=== PATIENT | male | born 1940 | race Asian ===

== ENCOUNTER 2017-04-30 07:30 | Inpatient (IN) | payer OTHER ==
[~2017-04-30] VITALS: Ht 167.6 cm; Wt 67.6 kg
--- NOTE | 2017-04-30 07:30 | NUR ---
PATIENT BIBA FOR C/O CHEST PAIN . PT STATES HE WAS WORKING OUT AT [employer] AND BEGAN HAVING CHEST PAIN. PER MEDIC BYSTANDERS NOTED PT CLUTCHING HIS CHEST AND CALLED 911. HX CORONARY BYPASS X2 IN 1996 AND 2007, PACEMAKER PLACEMENT 2012 . DENIES N/V/D; SKIN IS PINK/WARM/DRY; AAOX4; LUNGS CLEAR BL; HR EVEN AND REGULAR; PT DENIES ANY FEVER, SOB, OR COUGH AT THIS TIME; PATIENT STATES PAIN OF 7/10 AT THIS TIME; VSS; PATIENT POSITIONED FOR COMFORT; HOB ELEVATED; BEDRAILS UP X2; BED DOWN. ER MD MADE AWARE OF PT STATUS.
--- NOTE | 2017-04-30 07:30 | NUR ---
Patient was BIBA and taken to bed 03 via gurney per EMS.
[2017-04-30 07:33] VITALS: BP 107/73
--- NOTE | 2017-04-30 07:35 | NUR ---
[employer] #[id number] CONTACTED AT 1181, TRANSLATED FOR PT.
[2017-04-30] MEDS ORDERED: NITROGLYCERIN 2% 1 GM PKT TP ONE (07:40)
--- NOTE | 2017-04-30 07:43 | NUR ---
DAUGHTER AT BEDSIDE.
[2017-04-30 07:57] LABS: BASOPHILS # (AUTO) 0.4 K/uL (0.00-0.22); BASOPHILS % (AUTO) 4.7 % (0.0-2.0); EOSINOPHILS # (AUTO) 0.2 K/uL (0-0.4); EOSINOPHILS % (AUTO) 2.2 % (0.0-4.0); HEMATOCRIT 38.1 % (36-52); HEMOGLOBIN 12.4 g/dL (12.0-18.0); LYMPHOCYTES # (AUTO) 3.8 K/uL (2.0-11.5); LYMPHOCYTES % (AUTO) 46.3 % (20.5-51.1); MEAN CORPUSCULAR HEMOGLOBIN 29 pg (27-31); MEAN CORPUSCULAR HGB CONC 33 g/dL (33-37); MEAN CORPUSCULAR VOLUME 89 fL (80-94); MONOCYTES # (AUTO) 0.9 K/uL (0.8-1.0); MONOCYTES % (AUTO) 10.4 % (1.7-9.3); NEUTROPHILS # (AUTO) 3.1 K/uL (1.8-7.7); NEUTROPHILS % (AUTO) 36.4 % (42.2-75.2); PLATELET COUNT (AUTO) 174 K/uL (140-450); RED BLOOD CELL COUNT(AUTO) 4.29 MIL/uL (4.20-6.10); RED CELL DISTRIBUTION WIDTH 13.4 % (11.6-13.7); WHITE BLOOD COUNT (AUTO) 8.4 K/uL (4.8-10.8)
--- NOTE | 2017-04-30 08:12 | NUR ---
PT RESTING QUIETLY ON GURFLUSHING.
[2017-04-30 08:29] LABS: ALANINE AMINOTRANSFERASE 22 U/L (12-78); ALBUMIN 3.2 g/dL (3.4-5.0); ALKALINE PHOSPHATASE 36 U/L (46-116); ANION GAP 11.4 (8-16); ASPARTATE AMINOTRANSFERASE 19 U/L (15-37); CARBON DIOXIDE 29.3 mmol/L (21-32); CHLORIDE 105 mmol/L (98-107); CREATININE 1.1 mg/dL (0.6-1.3); GLUCOSE 152 mg/dL (74-106); INR 1.9 (0.8-1.2); PARTIAL THROMBOPLASTIN TIME 30.8 secs (22-35.6); POTASSIUM 3.7 mmol/L (3.5-5.1); PROTHROMBIN TIME 19.7 secs (10.8-13.4); SODIUM SERUM 142 mmol/L (136-145); TOTAL BILIRUBIN 0.4 mg/dL (0.0-1.0); TOTAL PROTEIN, SERUM 6.3 g/dL (6.4-8.2); UREA NITROGEN, BLOOD 16 mg/dL (7-18)
--- NOTE | 2017-04-30 08:36 | NUR ---
PT RESTING QUIETLY ON GURNEY. DAUGHTER AT BEDSIDE. PT DENIES ANY PAIN AT THIS TIME.
[2017-04-30 08:37] LABS: CALCIUM 8.2 mg/dL (8.5-10.1)
--- NOTE | 2017-04-30 08:41 | NUR ---
PER DAUGHTER PT TAKES SEVERAL MEDICATIONS, BUT DOES NOT HAVE LIST WITH HIM. SPOUSE WILL OBTAIN LIST FROM HOME AND BRING TO PT.
--- NOTE | 2017-04-30 08:56 | NUR ---
SPOUSE ARRIVED WITH MEDICATION LIST.
[2017-04-30] MEDS: NACL 0.9% 1,000 ML IV SCH (09:00)
[2017-04-30] MEDS ORDERED: ONDANSETRON 4 MG/2 ML VIAL IVP PRN (09:00)
[2017-04-30] MEDS ORDERED: MORPHINE SULFATE 2 MG/ML SYR IVP PRN (09:00)
--- NOTE | 2017-04-30 09:02 | NUR ---
Patient will be admitted to care of DR. LUTZ. Admited to TELE. Will go to room 106-A. Belongings list completed. Report to [facility].
[2017-04-30] MEDS ORDERED: WARF4TAB PO (09:07)
[2017-04-30] MEDS ORDERED: EZET10TA1 PO (09:07)
[2017-04-30] MEDS ORDERED: HYDR-4446 PO (09:07)
[2017-04-30] MEDS ORDERED: METO50TA68 PO (09:07)
[2017-04-30] MEDS ORDERED: DIGO0.1296 PO (09:07)
[2017-04-30] MEDS ORDERED: NITR0.4T2 SL (09:07)
[2017-04-30] MEDS ORDERED: VALS80TA2 PO (09:07)
[2017-04-30] MEDS ORDERED: SIMV20TA6 PO (09:07)
--- NOTE | 2017-04-30 10:00 | NUR ---
RECEIVED NEW ADMIT FROM ER UNDER THE CARE OF DR LUTZ WITH A DX OF CHEST PAIN . PATIENT AWAKE A/OX4 KOSOV[place] SPEAKING , BUT ABLE TO MAKE NEEDS KNOWN. NO S/S OF RESP DISTRESS NOTED. NO COMPLAIN OF CHEST PAIN AT THIS TIME. DAUGHTER AT THE BED SIDE HELPING WITH TRANSLATION. IV SITE RIGHT AC GAUGE 20 INTACT AND PATENT. UNIT ORIENTATION GIVEN ,SAFETY HAS BEEN TAUGHT. PLAN OF CARE DISCUSSED WITH THE PATIENT AND FAMILY VITALS STABLE WILL CONTINUE TO MONITOR.
[2017-04-30 10:24] LABS: FREE T4 (FREE THYROXINE) 0.98 ng/dL (0.76-1.46); THYROID STIMULATING HORMONE 3.85 uIU/mL (0.34-3.76)
[2017-04-30 10:59] VITALS: BP 108/71
[2017-04-30] MEDS ORDERED: MAG SULF 2000 MG/WATER PREMIX 50 ML IV SCH (11:30)
--- NOTE | 2017-04-30 11:30 | NUR ---
CHECKED BLOOD SUGAR 104 NO COVERAGE NEEDED
[2017-04-30] MEDS: BLOOD GLUCOSE MONITORING 1 DEV DEV FS SCH ×3 (11:57→20:56)
[2017-04-30 12:00] VITALS: BP 115/74
[2017-04-30] MEDS ORDERED: VALSARTAN 80 MG TAB PO SCH (12:00)
--- NOTE | 2017-04-30 12:00 | NUR ---
RELAXED NO PAIN VITALS STABLE AT THIS TIME.
--- NOTE | 2017-04-30 14:50 | NUR ---
RESTING WELL NO SOB NOTED DENIES ANY CHEST PAIN AT THIS TIME.
[2017-04-30 16:00] VITALS: BP 118/82
--- NOTE | 2017-04-30 16:30 | NUR ---
CHECKED BLOOD SUGAR 155 SLIDING SCALE COVERAGE 2 UNITS GIVEN.
[2017-04-30] MEDS ORDERED: ACETAMINOPHEN 325 MG TAB PO PRN (17:00)
--- NOTE | 2017-04-30 17:10 | NUR ---
C/O HEADACHE MEDICATED WITH TYLENOL.
[2017-04-30] MEDS: WARFARIN 2 MG TAB PO SCH (17:14)
--- NOTE | 2017-04-30 19:07 | NUR ---
SAFETY MAINTAINED CALL LIGHT IN REACH , STABLE CONDITION . ENDORSE THE CARE TO [employer] LEAD.
--- NOTE | 2017-04-30 19:25 | NUR ---
RECEIVED FROM AM RN IN BED SLEEPING. AT BEDSIDE. MARSHALLESE SPEAKING. ABLE TO UNDERSTAND A LITTLE BIT OF ITALIAN. WAKES UP WHEN TOUCHED. NO SOB. TELEMETRY MONITORING. WITH PACEMAKER IN PLACE AND WITH AFIB. CARE PLANS DISCUSSED AND DEMONSTRATED WITH THEM . CALL LIGHT WITH IN REACH AT ALL TIMES.
[2017-04-30 20:47] VITALS: BP 114/88
[2017-04-30] MEDS: EZETIMIBE 10 MG TAB PO SCH (20:55)
[2017-04-30] MEDS: INSULIN LISPRO SLIDING SCALE 100 UNITS/ML VIAL SUBQ PRN (20:56)
[2017-04-30] MEDS ORDERED: METOPROLOL 25 MG TAB PO SCH (21:00)
[2017-04-30] MEDS ORDERED: SIMVASTATIN 20 MG TAB PO SCH ×2 (21:00)
--- NOTE | 2017-04-30 22:00 | NUR ---
PROVIDED WITH ADDITIONAL WARM BLANKET RT COMPLAINED THAT HE IS COLD. TELEMETRY MONITORING. CALL LIGHT WITH IN REACH. AND DEMONSTRATED AGAIN TO USE CALL LIGHT IF HE NEEDS ME OR IF IN PAIN.
--- NOTE | 2017-05-01 00:22 | NUR ---
SLEEPING WELL AT THIS TIME. NO COMPLAINTS DONE. TELEMETRY MONITORING. ALERT AND ORIENTED X 4.
[2017-05-01 00:58] VITALS: BP 133/90
[2017-05-01 04:31] VITALS: BP 139/83
--- NOTE | 2017-05-01 04:44 | NUR ---
AWAKE AT THIS TIME AND GAVE ME SPECIMEN FOR UA. ABLE TO NOD HEAD IF HE AGREES WITH YOU. USES HANDS TO ARTICULATE NEEDS AND WANTS.
[2017-05-01] MEDS: BLOOD GLUCOSE MONITORING 1 DEV DEV FS SCH ×4 (05:42→21:52)
[2017-05-01 06:09] LABS: BILIRUBIN,URINE NEGATIVE (NEGATIVE); BLOOD, URINE NEGATIVE (NEGATIVE); COLOR,URINE YELLOW (YELLOW); LEUKOCYTE ESTERASE ,URINE NEGATIVE (NEGATIVE); NITRITE, URINE NEGATIVE (NEGATIVE); PROTEIN,URINE NEGATIVE (NEGATIVE); UGLUCOSE NEGATIVE (NEGATIVE); UROBILINOGEN,URINE 0.2 EU/dL (0.2 - 1)
[2017-05-01 06:14] LABS: AMPHETAMINE, URINE NEG. ng/ml (NEG <=1000); BARBITURATE, URINE NEG. ng/ml (NEG <=200); BENZODIAZEPINE, URINE NEG. ng/mL (NEG <=200); CANNABINOID, URINE NEG. ng/mL (NEG <=50); COCAINE, URINE NEG. ng/mL (NEG <=300); OPIATE, URINE NEG. ng/mL (NEG <=2000); PHENCYCLIDINE SCREEN,URINE NEG. ng/mL (NEG <=25)
[2017-05-01 06:19] LABS: BASOPHILS # (AUTO) 0.2 K/uL (0.00-0.22); BASOPHILS % (AUTO) 2.6 % (0.0-2.0); EOSINOPHILS # (AUTO) 0.2 K/uL (0-0.4); EOSINOPHILS % (AUTO) 2.8 % (0.0-4.0); LYMPHOCYTES # (AUTO) 3.5 K/uL (2.0-11.5); LYMPHOCYTES % (AUTO) 45.8 % (20.5-51.1); MEAN CORPUSCULAR HEMOGLOBIN 30 pg (27-31); MEAN CORPUSCULAR HGB CONC 33 g/dL (33-37); MEAN CORPUSCULAR VOLUME 89 fL (80-94); MONOCYTES # (AUTO) 0.7 K/uL (0.8-1.0); MONOCYTES % (AUTO) 9.3 % (1.7-9.3); NEUTROPHILS % (AUTO) 39.5 % (42.2-75.2); PLATELET COUNT (AUTO) 186 K/uL (140-450); RED BLOOD CELL COUNT(AUTO) 4.74 MIL/uL (4.20-6.10); RED CELL DISTRIBUTION WIDTH 13.7 % (11.6-13.7); WHITE BLOOD COUNT (AUTO) 7.6 K/uL (4.8-10.8)
[2017-05-01 06:19] LABS: APPEARANCE,URINE SLIGHTLY HAZY (CLEAR); BACTERIA,URINE None Seen /HPF (None Seen); RBC,URINE NONE SEEN /HPF (0-5); SQUAMOUS EPITHELIAL CELL,UR None Seen /LPF (0-3 (FEW)); WBC,URINE NONE SEEN /HPF (0-5)
[2017-05-01 06:20] LABS: URINE AMORPHOUS PHOSPHATES 1+ /HPF (None Seen)
[2017-05-01 06:53] LABS: MAGNESIUM 2.3 mg/dL (1.8-2.4)
[2017-05-01 07:03] LABS: ANION GAP 13.4 (8-16); CALCIUM 8.5 mg/dL (8.5-10.1); CARBON DIOXIDE 25.6 mmol/L (21-32); CHLORIDE 107 mmol/L (98-107); CREATININE 0.9 mg/dL (0.6-1.3); GLUCOSE 103 mg/dL (74-106); SODIUM SERUM 142 mmol/L (136-145); UREA NITROGEN, BLOOD 16 mg/dL (7-18)
--- NOTE | 2017-05-01 07:25 | NUR ---
RECEIVED PT IN BED. AWAKE, ALERT, ORIENTED X4. NO SOB NOTED. DENIES ANY PAIN OR DISCOMFORT AT THIS TIME. POSITIVE BOWEL SOUNDS NOTED ON FOUR QUADRANTS. PT AMBULATORY WITH STAND BY ASSIST. OFFERED URINAL NEEDED, SAFETY PRECAUTION IN PLACE. CALL LIGHT WITHIN REACH.
[2017-05-01 07:27] LABS: INR 1.8 (0.8-1.2); PROTHROMBIN TIME 18.5 secs (10.8-13.4)
[2017-05-01 08:00] VITALS: BP 142/82
[2017-05-01] MEDS ORDERED: WARFARIN SODIUM PO SCH (09:00)
[2017-05-01] MEDS ORDERED: DIGOXIN PO SCH (09:00)
[2017-05-01] MEDS ORDERED: LISINOPRIL 5 MG TAB PO SCH (09:00)
[2017-05-01] MEDS ORDERED: VALSARTAN 80 MG TAB PO SCH (09:00)
[2017-05-01] MEDS: ECOTRIN 81 MG TABEC PO SCH (09:04)
[2017-05-01] MEDS: DIGOXIN 0.125 MG TAB PO SCH (09:05)
[2017-05-01] MEDS: VALSARTAN 80 MG TAB PO SCH (09:05)
[2017-05-01] MEDS: CARVEDILOL 3.125 MG TAB PO SCH ×2 (09:05→20:36)
--- NOTE | 2017-05-01 09:12 | NUR ---
PATIENT HAS BEEN SCREENED AND CATEGORIZED MODERATE NUTRITION RISK. PATIENT WILL BE SEEN WITHIN 3-5 DAYS OF ADMISSION. 05/02/17-05/04/[address]
[2017-05-01 12:00] VITALS: BP 129/86
--- NOTE | 2017-05-01 15:08 | NUR ---
PT COMPLAINED OF ABDOMINAL PAIN WITH ACIDITY. DR. SANDHU MADE AWARE. WITH ORDERS MADE AND CARRIED OUT.
[2017-05-01] MEDS ORDERED: PANTOPRAZOLE 40 MG INJ VIAL IVP SCH (15:09)
[2017-05-01] MEDS ORDERED: SUCRALFATE 1 GM TAB PO SCH (15:10)
[2017-05-01 16:00] VITALS: BP 136/78
--- NOTE | 2017-05-01 16:15 | NUR ---
PT VERBALIZED RELIEF FROM ABDOMINAL DISCOMFORT DUE TO ACIDITY.
[2017-05-01] MEDS: WARFARIN 2 MG TAB PO SCH (16:51)
--- NOTE | 2017-05-01 19:27 | NUR ---
PT KEPT CLEAN, DRY AND COMFORTABLE, NEEDS ATTENDED. NO SOB, DENIES ANY PAIN OR DISCOMFORT AT THIS TIME. ENDORSED TO NEXT SHIFT FOR CONTINUITY OF CARE. PT ON STABLE CONDITION.
--- NOTE | 2017-05-01 19:28 | NUR ---
RECEIVED REPORT, ASSUMED CARE. PT AAOX4, AT BEDSIDE. RESPIRATION EVEN AND UNLABORED,NO SOB, NO S/S RESPIRATORY DISTRESS. CONTINUE TO MONITOR FOR CHEST PAIN, DENIES ANY AT THIS TIME. IV ACCESS TO LT AC, GAUGE 20, NO S/S OF INFILTRATION AT THIS TIME. INFUSING NS @ 10ML/HR, TOLERATING WELL. DISCUSSED PLAN OF CARE. EDUCATED ABOUT SAFETY AND FALL PREVENTION. PT VERBALIZED UNDERSTANDING. CALL LIGHT KEPT WITHIN EASY REACH. WILL CONTINUE TO MONITOR.
[2017-05-01 20:00] VITALS: BP 136/74
[2017-05-01] MEDS: EZETIMIBE 10 MG TAB PO SCH (20:36)
[2017-05-01] MEDS ORDERED: SUCRALFATE 1 GM TAB PO PRN (21:00)
--- NOTE | 2017-05-01 21:50 | NUR ---
BLOOD SUGAR CHECKED, 135MG/DL- NO INSULIN COVERAGE PER SLIDING SCALE. PT VERBALLY RESPONSIVE. NO ACUTE CHANGES NOTED AT THIS TIME. WILL CONTINUE TO MONITOR.
[2017-05-02] VITALS: BP 142/99
--- NOTE | 2017-05-02 00:19 | NUR ---
PT SLEEPING AT THIS TIME, EASY TO AROUSE. RESPIRATION EVEN AND UNLABORED, NO SOB, NO RESPIRATORY DISTRESS AT THIS TIME. NO FACIAL GRIMACING OR MOANING INDICATING PAIN. WILL CONTINUE TO MONITOR. CALL LIGHT KEPT WITHIN EASY REACH.
--- NOTE | 2017-05-02 02:00 | NUR ---
ROUTINE ROUNDS, PT SOUND ASLEEP WITH NO S/S OF RESPIRATORY DISTRESS. NO ACUTE CHANGE IN CONDITION AT THIS TIME. WILL CONTINUE TO MONITOR.
[2017-05-02 04:00] VITALS: BP 137/91
--- NOTE | 2017-05-02 04:30 | NUR ---
ROUTINE ROUNDS, PT SOUND ASLEEP WITH NO S/S OF RESPIRATORY DISTRESS. NO ACUTE CHANGE IN CONDITION AT THIS TIME. WILL CONTINUE TO MONITOR.
[2017-05-02 06:11] LABS: BASOPHILS # (AUTO) 0.4 K/uL (0.00-0.22); BASOPHILS % (AUTO) 4.6 % (0.0-2.0); EOSINOPHILS # (AUTO) 0.2 K/uL (0-0.4); EOSINOPHILS % (AUTO) 2.3 % (0.0-4.0); HEMOGLOBIN 14.4 g/dL (12.0-18.0); LYMPHOCYTES # (AUTO) 2.3 K/uL (2.0-11.5); LYMPHOCYTES % (AUTO) 29.6 % (20.5-51.1); MEAN CORPUSCULAR HEMOGLOBIN 30 pg (27-31); MEAN CORPUSCULAR HGB CONC 33 g/dL (33-37); MEAN CORPUSCULAR VOLUME 89 fL (80-94); MONOCYTES # (AUTO) 0.8 K/uL (0.8-1.0); MONOCYTES % (AUTO) 10.7 % (1.7-9.3); NEUTROPHILS # (AUTO) 4.2 K/uL (1.8-7.7); NEUTROPHILS % (AUTO) 52.8 % (42.2-75.2); PLATELET COUNT (AUTO) 197 K/uL (140-450); RED BLOOD CELL COUNT(AUTO) 4.86 MIL/uL (4.20-6.10); RED CELL DISTRIBUTION WIDTH 13.3 % (11.6-13.7); WHITE BLOOD COUNT (AUTO) 7.9 K/uL (4.8-10.8)
[2017-05-02 06:32] LABS: ANION GAP 14.9 (8-16); CALCIUM 8.7 mg/dL (8.5-10.1); CARBON DIOXIDE 23.9 mmol/L (21-32); CHLORIDE 106 mmol/L (98-107); CREATININE 0.9 mg/dL (0.6-1.3); GLUCOSE 118 mg/dL (74-106); POTASSIUM 3.8 mmol/L (3.5-5.1); SODIUM SERUM 141 mmol/L (136-145); UREA NITROGEN, BLOOD 16 mg/dL (7-18)
[2017-05-02 06:35] LABS: INR 2.3 (0.8-1.2)
[2017-05-02] MEDS: BLOOD GLUCOSE MONITORING 1 DEV DEV FS SCH ×2 (06:43→11:08)
[2017-05-02] MEDS: INSULIN LISPRO SLIDING SCALE 100 UNITS/ML VIAL SUBQ PRN (06:44)
[2017-05-02 06:52] LABS: DIGOXIN 0.16 ng/mL (0.80-2.00); MAGNESIUM 2.1 mg/dL (1.8-2.4); PHOSPHORUS 3.2 mg/dL (2.5-4.9)
--- NOTE | 2017-05-02 07:16 | NUR ---
PT AWAKE AND VERBALLY RESPONSIVE. NO C/O CHEST PAIN THROUGHOUT THE SHIFT. BS 116MG/DL, NO INSULIN COVERAGE PER SLIDING SCALE. NO S/S OF RESPIRATORY DISTRESS. PT IN STABLE CONDITION. ENDORSED TO NEXT SHIFT FOR CONTINUITY OF CARE.
--- NOTE | 2017-05-02 07:20 | NUR ---
RECEIVED PT IN BED. ASLEEP. AROUSABLE TO VOICE. ALERT ORIENTED X4. NO SOB NOTED. DENIES ANY PAIN OR DISCOMFORT AT THIS TIME. POSITIVE BOWEL SOUNDS NOTED ON FOUR QUADRANTS. PT AMBULATORY STEADILY GOING TO THE BATHROOM. DENIES ANY PAIN OR DISCOMFORT WITH BOWEL OR BLADDER ELIMINATION AT THIS TIME. SAFETY PRECAUTION IN PLACE. CALL LIGHT WITHIN REACH.
[2017-05-02 08:00] VITALS: BP 142/89
[2017-05-02] MEDS ORDERED: metFORMIN 500 MG TAB PO SCH (08:00)
[2017-05-02] MEDS: VALSARTAN 80 MG TAB PO SCH (08:51)
[2017-05-02] MEDS: DIGOXIN 0.125 MG TAB PO SCH (08:51)
[2017-05-02] MEDS: ECOTRIN 81 MG TABEC PO SCH (08:52)
[2017-05-02] MEDS: CARVEDILOL 3.125 MG TAB PO SCH (08:52)
[2017-05-02] MEDS ORDERED: PANTOPRAZOLE 40 MG INJ VIAL IVP SCH (09:00)
[2017-05-02] MEDS: NACL 0.9% 1,000 ML IV SCH (10:11)
[2017-05-02] MEDS ORDERED: METF500T4 PO (11:40)
[2017-05-02] MEDS ORDERED: FURO-572 PO (11:44)
[2017-05-02] MEDS ORDERED: BLOO-224 MC (11:46)
[2017-05-02 12:00] VITALS: BP 134/96
--- NOTE | 2017-05-02 12:00 | NUR ---
PT AWAKE. WITH AT BEDSIDE. NO SOB NOTED DENIES ANY PAIN OR DISCOMFORT AT THIS TIME.
--- NOTE | 2017-05-02 12:30 | NUR ---
DISCHARGE ORDERS MADE AND CARRIED OUT. AT BEDSIDE. DISCHARGE INSTRUCTIONS GIVEN TO PT. PT VERBALIZED UNDERSTANDING. PT SIGNS DISCHARGE PAPERS.
--- NOTE | 2017-05-02 14:30 | NUR ---
PT TELE MONITOR REMOVED. IV CANNULA REMOVED AND INTACT. NAME ARM BAND REMOVED. WHEELED PT OUT OF THE HOSPITAL PARKING LOT ON STABLE CONDITION. VITALS SIGNS STABLE. WITH PATIENT. PT WAS PICKED UP BY TO THEIR PRIVATE OWNED VEHICLE.
--- NOTE | 2017-05-02 14:31 | NUR ---
FAXED IMAGING, EKG, CONSULTATION, LABS AND H AND P, TO DR. OFELIA RIOS [phone] PER MD ORDER BY [employer].
== END 2017-05-02 14:30 | disposition home or self-care (01) | DRG 205 ==
LOC: MED 07:30 → MTU 09:04
PROVIDERS: ADMIT Family Medicine; ATTEND Family Medicine
DX: M94.0 Chondrocostal junction syndrome [Tietze] (principal); I50.43 Acute on chronic combined systolic (congestive) and diastolic (congestive) heart failure; E44.0 Moderate protein-calorie malnutrition; C85.90 Non-Hodgkin lymphoma, unspecified, unspecified site; D68.59 Other primary thrombophilia; E78.5 Hyperlipidemia, unspecified; E11.65 Type 2 diabetes mellitus with hyperglycemia; I25.5 Ischemic cardiomyopathy; I25.10 Atherosclerotic heart disease of native coronary artery without angina pectoris; I11.0 Hypertensive heart disease with heart failure; I48.2 Chronic atrial fibrillation; Z79.01 Long term (current) use of anticoagulants; Z95.0 Presence of cardiac pacemaker; I25.2 Old myocardial infarction; Z87.891 Personal history of nicotine dependence; Z92.21 Personal history of antineoplastic chemotherapy; Z95.5 Presence of coronary angioplasty implant and graft; Z79.899 Other long term (current) drug therapy; Z68.24 Body mass index [BMI] 24.0-24.9, adult; I34.0 Nonrheumatic mitral (valve) insufficiency
CPT/HCPCS: 36415; 71010; 80048; 80053; 80162; 80305; 81001; 82948; 83036; 83735; 83880; 84100; 84439; 84443; 84484; 85025; 85610; 85730; 87081; 93005; 93925; 93970; 99285; C9113; J1815; J3475; J7030; Q0092